=== PATIENT | female | born 1990 | race Caucasian/White ===

== ENCOUNTER 2023-02-14 10:16 | Emergency (ER) | payer BC ==
[~2023-02-14] VITALS: Ht 162.6 cm; Wt 77.1 kg
[2023-02-14 10:27] VITALS: BP_SYST 126; PULSE 66; RESP 17; TEMP 97.1; O2SAT 100
[2023-02-14 11:33] LABS: BILIRUBIN,URINE NEGATIVE (NEGATIVE); CLARITY/URINE SL CLOUDY (CLEAR); COLOR,URINE YELLOW (YELLOW); GLUCOSE,URINE NEGATIVE (NEGATIVE); KETONES,URINE NEGATIVE (NEGATIVE); LEUKOCYTE ESTERASE ,URINE TRACE (NEGATIVE); NITRITE, URINE NEGATIVE (NEGATIVE); PROTEIN URINE NEGATIVE (NEGATIVE); UROBILINOGEN,URINE 0.2 (0.2-1.0)
[2023-02-14 11:34] LABS: BLOOD, URINE TRACE (NEGATIVE)
[2023-02-14 11:42] LABS: BACTERIA,URINE FEW /HPF (None Seen); MUCUS,URINE 1+ /LPF (None Seen)
[2023-02-14] MEDS ORDERED: NITR-85 PO (12:41)
[2023-02-14 13:14] VITALS: BP_SYST 117; PULSE 68; RESP 19; TEMP 98; O2SAT 99
== END 2023-02-14 12:48 | disposition home or self-care (01) ==
LOC: SED 10:16
DX: N39.0 Urinary tract infection, site not specified (principal); R31.9 Hematuria, unspecified; R10.30 Lower abdominal pain, unspecified; I10 Essential (primary) hypertension; Z88.1 Allergy status to other antibiotic agents; Z79.899 Other long term (current) drug therapy
CPT/HCPCS: 81000; 81001; 81015; 87086; 99283